=== PATIENT | male | born 1980 | race Caucasian/White ===

== ENCOUNTER 2024-06-22 18:08 | Emergency (ER) | payer BC ==
[~2024-06-22] VITALS: Ht 182.9 cm; Wt 90.7 kg
[2024-06-22] MEDS ORDERED: NS 1,000 ML IV SCH (20:35)
[2024-06-22] MEDS ORDERED: FentaNYL Citrate 50 MCG/ML 2 ML Injection IV ONE ×2 (20:35→22:10)
[2024-06-22] MEDS ORDERED: Ketorolac Tromethamine 15mg Vial IV ONE (22:10)
[2024-06-22] MEDS ORDERED: RX Prepack 6 Tabs Oxycodone 5mg UD ONE (22:30)
== END 2024-06-22 23:18 | disposition home or self-care (01) ==
LOC: ER 18:08
DX: S82.851A Displaced trimalleolar fracture of right lower leg, initial encounter for closed fracture (principal); X50.1XXA Overexertion from prolonged static or awkward postures, initial encounter; Y93.67 Activity, basketball; E11.9 Type 2 diabetes mellitus without complications
CPT/HCPCS: 29515; 73610; 93926; 96374-59; 96375-59; 99283-25; A9270; J1885; J3010; J7030

== ENCOUNTER 2024-07-04 11:45 | Day surgery (SDC) | payer BC ==
[~2024-07-04] VITALS: Ht 188 cm; Wt 100.0 kg
[~2024-07-04 11:45] MED LIST: Bupivacaine 0.5% W/EPI 1:200000 SDV 30 ML Vial ONE
[2024-07-04] MEDS ORDERED: CeFAZolin Sodium 2,000 MG VIAL ONE (12:23)
[2024-07-04] MEDS ORDERED: NOVOLIN N100 UNIT/2 (12:39)
[2024-07-04] MEDS ORDERED: NOVOLIN N100 UNIT/2 SC (12:40)
[2024-07-04] MEDS ORDERED: NOVOLIN R100 UNIT/2 SQ (12:41)
[2024-07-04] MEDS ORDERED: Norco 5-325 Ta1 EACH PO (12:42)
[2024-07-04] MEDS ORDERED: Lactated Ringer's 1,000 ML IV ONE ×2 (12:52→16:58)
[2024-07-04] MEDS ORDERED: FentaNYL Citrate 50 MCG/ML 2 ML Injection ONE ×2 (13:33→16:30)
[2024-07-04] MEDS ORDERED: Midazolam HCl 1MG / ML 2ML Vial ONE (13:33)
[2024-07-04] MEDS ORDERED: propofoL 40 ML IV ONE (13:35)
[2024-07-04] MEDS ORDERED: Ropivacaine 0.5% HCL/PF 5 MG/ML 30ML Vial ONE (14:09)
[2024-07-04] MEDS ORDERED: Ropivacaine 0.2% HCl/Pf 2 MG/ML 20ML Vial ONE (14:09)
[2024-07-04] MEDS ORDERED: Insulin Regular 100 UNIT/ML 10ML Vial ONE (14:29)
[2024-07-04] MEDS ORDERED: propofoL 20 ML IV ONE (15:01)
--- NOTE | 2024-07-04 15:18 | NUR ---
07/04/24 [address] PAULINO, ADMINISTERED 6 UNITS HUMULIN R INSULIN SUBCUTANEOUSLY IN BACK OF PATIENT'S L UPPER ARM AT 1438. CHARGE NURSE JST AND NRSG TREE [employer]ANTER CB BOTH VERIFIED CORRECT DOSE IN INSULIN SYRINGE PRIOR TO AMINISTRATION. PT'S BLOOD SUGAR WAS 227 IN PREOP. TIME OUT PERFORMED AT BEDSIDE WITH DR PAULINO AT 1440. 1ST NERVE BLOCK STARTED AT 1446 AND ENDED AT 1450, POPLITEAL NERVE BLOCK STARTED AT 1453 AND ENDED AT 1458. PATIENT TOLERATED PROCEDURE WELL. PT WAS ON 3L O2 VIA N/C AND SPO2 AND HR MONITORED THROUGHOUT PROCEDURE.
[2024-07-04] MEDS ORDERED: Ondansetron HCl 2 MG / ML 2ML Vial ONE (15:42)
[2024-07-04] MEDS ORDERED: Sugammadex Sodium 200 MG/2ML SDV (100 MG/ML) ONE (15:42)
[2024-07-04] MEDS ORDERED: Ketorolac Tromethamine 30mg Vial ONE ×2 (15:42→15:57)
[2024-07-04] MEDS ORDERED: Dexamethasone Sod Phos 10 MG/ML 1ML VIAL ONE (15:42)
[2024-07-04] MEDS ORDERED: Phenylephrine HCl 100 MCG/ML-NS 10MLSYR (1MG/10ML) ONE (15:58)
[2024-07-04] MEDS ORDERED: Rocuronium Bromide 10 MG/ML 5ML Injection IV ONE (16:25)
--- NOTE | 2024-07-04 17:00 | NUR ---
07/04/24 1700 ZAK MORRISON 226 BLOOD GLUCOSE @ 1700
--- NOTE | 2024-07-04 17:23 | NUR ---
07/04/24 1723 ZAK MORRISON LEFT SHOULDER PAIN 09/06, PATIENT STATES HE HAS HAD PAIN IN THE SHOULDER FOR "A MONTH"
== END 2024-07-04 18:05 | disposition home or self-care (01) ==
LOC: ORSCSDS 11:45
DX: S82.851A Displaced trimalleolar fracture of right lower leg, initial encounter for closed fracture (principal); Y93.67 Activity, basketball; E10.9 Type 1 diabetes mellitus without complications; Z79.4 Long term (current) use of insulin; Z79.899 Other long term (current) drug therapy
CPT/HCPCS: 82947; C1713; C1769; J0690; J1100; J1815; J1885; J2250; J2371; J2405; J2704; J2795; J3010; J7120